=== PATIENT | female | born 1975 | race Caucasian/White ===

== ENCOUNTER → 2020-04-14 | Outpatient (CLI) | payer BC | END | disposition home or self-care (01) | LOC: CFH 13:34 | PROVIDERS: ATTEND Family Medicine | DX: N63.21 Unspecified lump in the left breast, upper outer quadrant (principal); N60.02 Solitary cyst of left breast; R92.0 Mammographic microcalcification found on diagnostic imaging of breast | CPT/HCPCS: 76642; 77065 ==

== ENCOUNTER → 2020-11-02 | Outpatient (CLI) | payer BC | END | disposition home or self-care (01) | LOC: CFH 09:20 | PROVIDERS: ATTEND Family Medicine | DX: N63.21 Unspecified lump in the left breast, upper outer quadrant (principal); R92.0 Mammographic microcalcification found on diagnostic imaging of breast; R92.2 Inconclusive mammogram | CPT/HCPCS: 77061; 77065; G0279 ==